=== PATIENT | female | born 1950 | race Caucasian/White ===

== ENCOUNTER 2017-10-31 06:40 | Outpatient (CLI) | payer MEDICARE, MEDICAID ==
[~2017-10-31] VITALS: Ht 172.7 cm; Wt 60.0 kg
--- NOTE | ~2017-10-31 | HEMODYNAMI ---
PATIENT:ZEINA TURNER MEDICAL RECORD: [id number] : 54 LOCATION:D.CAT ADMISSION DATE: 10/31/17 Generatedon:10/31/20179:21 Patient name: ZEINA TURNER Patient #: [id number] SSN: DO B: 1950 Date of study: 10/31/2017 Page: Of Hemodynamic Procedure Report Patient Data Patient Demographics Procedure consent was obtained First Name: ZEINA Gender: Female Last Name: YUE : 1950 Middle Initial: YESY Age: 67 year(s) Patient #: [id number] Race: Unknown Additional ID: [id number] Contact details Address: [address] [place] [address] State: [place] City: [place] Zip code: [address] Past Medical History Allergies Allergen Reaction Date Comments Reported Codeine 10/31/2017 Admission Admission Data Admission Date: 10/31/2017 Admission Time: 6:40 Lab Results Lab Result Date: 10/31/2017 Lab Result Time: 0:00 Biochemistry Name Units Result Min Max BUN mg/dl 12 --(-*--)-- 7 18 Creatinine mg/dl 0.8 --(-*--)-- 0.6 1.3 CBC Name Units Result Min Max Hemoglobin g/dl 14.3 --(*---)-- 13.5 17.5 Procedure Procedure Types Cath Procedure Peripheral Cath Diagnostic Procedure Cath Peripheral Gnhqg-Lncljjt-Ese-Off Procedure Description Procedure Date Procedure Date: 10/31/2017 Procedure Start Time: 9:04 Procedure End Time: 9:18 Procedure Staff Name Function Primitivo Jacobo MD Performing Physician Scarlet Garnett RT Monitor Tisha Yanez RT Scrub Vasu Summers RN Nurse Procedure Data Cath Procedure Fluoroscopy Diagnostic fluoroscopy Total fluoroscopy Time: 0.8 time: 0.8 min min Diagnostic fluoroscopy Total fluoroscopy dose: 70 dose: 70 mGy mGy Contrast Material Contrast Material Type Amount (ml) Isovue 370 66 Entry Location Entry Primary Successful Side Size Upsize Upsize Entry Closure Succes sful Closure Location (Fr) 1 (Fr) 2 (Fr) Remarks Device Remarks Femoral Right 5 Fr Exoseal artery Estimated blood loss: 5 ml Diagnostic catheters Device Type Used For End Catheter Placement DIAGNOSTIC UF 5Fr Procedure catheter ([id number]) Procedure Complications No complications Procedure Medications Medication Administration Route Dosage 0.9% NaCl I.V. 100 ml/hr Oxygen etCO2 Nasal cannula 2 l/min Heparin Flush Bag added to field 2 bags (1000units/500ml NS) Lidocaine 2% added to field 20 Versed I.V. 1 mg Fentanyl I.V. 50 mcg Versed I.V. 1 mg Fentanyl I.V. 50 mcg Versed I.V. 1 mg Versed I.V. 1 mg Hemodynamics Rest Pre Cath Intra NCS Post Cath Vital Signs Time Heart Resp SPO2 etCO2 NIBP (mmHg) Rhythm Pain Sedation Rate (ipm) (%) (mmHg) Status Level (bpm) 8:46:41 45 14 99 0 197/103(173) NSR 0 (11) 10(A) , No pain 8:52:09 48 15 100 31.4 208/100(159) NSR 0 (11) 10(A) , No pain 8:57:33 50 19 99 35.9 166/88(113) NSR 0 (11) 10(A) , No pain 9:07:51 45 15 97 33.6 137/77(0) NSR 0 (11) 9(A) , No pain 9:11:16 63 16 98 21.7 137/83(105) NSR 0 (11) 9(A) , No pain 9:15:54 55 19 99 21.6 132/78(98) NSR 0 (11) 10(A) , No pain Medications Time Medication Route Dose Verified Delivered Reason Notes Effe ctiveness by by 8:52:03 0.9% NaCl I.V. 100 Vasu Vasu Per ml/hr Melina Summers physician RN RN 8:52:19 Oxygen etCO2 2 Vasu Vasu Per Nasal l/min Melina Summers physician cannula RN RN 8:52:31 Heparin Flush added 2 Vasu Vasu used for Bag to bags Melina Summers procedure (1000units/500ml field RN RN NS) 8:52:44 Lidocaine 2% added 20ml Vasu Vasu for local to vial Lorigan Lorigan anesthetic field RN RN 8:54:01 Versed I.V. 1 mg Vasu Vasu for Lorigan Lorigan sedation RN RN 8:54:11 Fentanyl I.V. 50 Vasu Vasu for mcg Lorigan Lorigan sedation RN RN 8:58:37 Versed I.V. 1 mg Vasu Vasu for Lorigan Lorigan sedation RN RN 8:58:44 Fentanyl I.V. 50 Vasu Vasu for mcg Lorigan Lorigan sedation RN RN 9:01:47 Versed I.V. 1 mg Vasu Vasu for Lorigan Lorigan sedation RN RN 9:04:36 Versed I.V. 1 mg Vasu Vasu for Lorigan Lorigan sedation RN property management intern Log Time Note 8:34:53 Signed procedure consent form obtained from patient. 8:34:55 Vasu Summers RN sent for patient. Start room use. 8:34:57 Time tracking: Regular hours (M-F 7:00 - 5:00) 8:35:00 Plan of Care:Hemodynamics will remain stable., Cardiac rhythm will remain stable., Comfort level will be maintained., Respiratory function will remain adequate., Patient/ family verbilizes understanding of procedure., Procedure tolerated without complication., Recovers from procedure without complications.. 8:35:50 H&P Date Dictated: 10/22/2017 Within 30 days and on chart., H&P Addendum completed by physician on day of procedure. (MUST COMPLETE FOR ALL OUTPATIENTS). 8:36:25 Patient allergic to Codeine 8:37:08 Lab Result : BUN 12 mg/dl 8:37:08 Lab Result : Hemoglobin 14.3 g/dl 8:37:08 Lab Result : Creatinine 0.8 mg/dl 8:38:15 Patient received from Pre/Post Procedure Room to CCL 1 Alert and oriented. Tansferred to table in Supine position. 8:38:16 Warm blankets applied, and tasia hugger turned on for patient comfort. 8:38:16 Correct patient and procedure confirmed by team. 8:38:17 ECG and BP/O2 sat monitors applied to patient. 8:44:24 Vital chart was started 8:44:30 Rhythm: sinus bradycardia 8:48:02 Pre-procedure instructions explained to patient. 8:48:02 Pre-op teaching completed and patient verbalized understanding. 8:48:04 Family in patients room. 8:48:06 Patient NPO since Midnight. 8:48:14 Is the patient allergic to Iodine/contrast media? No. 8:48:15 Is patient on blood thinner?No 8:48:18 Patient diabetic? No. 8:48:22 Patient not . Patient is over age 55. 8:48:25 Previous problem with sedation/anesthesia? No ? 8:48:26 Snore? Yes 8:48:27 Sleep apnea? Yes 8:48:28 Deviated septum? No 8:48:29 Opens mouth fully? Yes 8:48:30 Sticks out tongue? Yes 8:48:32 Airway obstruction? No ? 8:48:37 Dentures? No OUT 8:48:41 Pre procedure: right dorsailis pedis pulse 2+ Normal; easily identifiable; not easily obliterated 8:48:45 Pre procedure: left dorsailis pedis pulse 2+ Normal; easily identifiable; not easily obliterated 8:48:55 IV patent on arrival in left forearm with 0.9% NaCl at [facility]. 8:48:58 Lab results completed and on chart. 8:49:01 Bilateral groins area was prepped with chlora-prep and draped in sterile fashion 8:49:02 Alarms reviewed by R. N. 8:49:03 Sharps counted by scrub and verified by R.N. 8:52:03 0.9% NaCl 100 ml/hr I.V. was administered by Vasu Summers RN; Per physician; 8:52:19 Oxygen 2 l/min etCO2 Nasal cannula was administered by Vasu Summers RN; Per physician; 8:52:31 Heparin Flush Bag (1000units/500ml NS) 2 bags added to field was administered by Vasu Summers RN; used for procedure; 8:52:44 Lidocaine 2% 20ml vial added to field was administered by Vasu Summers RN; for local anesthetic; 8:53:37 --------ALL STOP TIME OUT------ 8:53:37 Final Timeout: patient, procedure, and site verified with staff and physician. All members of the team are in agreement. 8:53:40 Bilateral groins site verified by team. 8:53:42 Physical assessment completed. ASA score P 2 - A patient with mild systemic disease as per Primitivo Jacobo MD. 8:53:46 Sedation plan: IV Moderate Sedation Medication:Versed, Fentanyl 8:53:57 Use device set CATH PACK 8:53:59 ACIST Syringe (11628) opened to sterile field. 8:53:59 ACIST Hand Control (05732) opened to sterile field. 8:54:00 ACIST Manifold (41404) opened to sterile field. 8:54:00 Medline Cath Pack ([id number]) opened to sterile field. 8:54:01 Versed 1 mg I.V. was administered by Vasu Summers RN; for sedation; 8:54:01 Bag Decanter (2002S) opened to sterile field. 8:54:01 DIAGNOSTIC WIRE .035 260cm J wire (809935) opened to sterile field. 8:54:07 SHEATH 5FR Elroy (EAX388) opened to sterile field. 8:54:11 Fentanyl 50 mcg I.V. was administered by Vasu Summers RN; for sedation; 8:58:37 Versed 1 mg I.V. was administered by Vasu Summers RN; for sedation; 8:58:42 Zero performed for pressure channel P1 8:58:44 Fentanyl 50 mcg I.V. was administered by Vasu Summers RN; for sedation; 9:01:47 Versed 1 mg I.V. was administered by Vasu Summers RN; for sedation; 9:03:37 Procedure started. 9:03:37 Full Disclosure recording started 9:04:33 Local anesthetic to right femoral artery with Lidocaine 2% by Primitivo Jacobo MD.INITIAL ACCESS ONLY 9:04:36 Versed 1 mg I.V. was administered by Vasu Summers RN; for sedation; 9:06:39 A 5 Fr sheath was inserted into the Right Femoral artery 9:06:57 A DIAGNOSTIC UF 5Fr catheter ([id number]) was advanced over the wire and used for Procedure. 9:07:41 Abdominal angiogram w/ runoff was performed. 9:08:24 Left leg runoff performed. 9:09:10 Right leg runoff performed. 9:13:01 Catheter removed. 9:13:12 EXOSEAL 5Fr (EX500) opened to sterile field. 9:13:50 Sheath removed intact; hemostasis achieved with Exoseal to the Right Femoral artery. 9:14:07 Procedure ended.(Physican Out) 9:14:40 Fluoroscopy time 00.80 minutes. 9:14:43 Fluoroscopy dose: 70 mGy 9:14:43 Flurop Dose total: 70 9:14:47 Contrast amount:Isovue 370 66ml. 9:14:48 Sharps counted by scrub and verified by R.N. 9:14:52 Post-op/insertion site Right Femoral artery dressed using a 4 x 4 and Tegaderm. 9:14:56 Post right femoral artery:stable, soft, clean and dry 9:15:02 Post procedure: right dorsailis pedis pulse 2+ Normal; easily identifiable; not easily obliterated. 9:15:05 Post procedure: left dorsailis pedis pulse 2+ Normal; easily identifiable; not easily obliterated. 9:15:08 Post-procedure physical assessment completed. ASA score P 2 - A patient with mild systemic disease as per Primitivo Jacobo MD. 9:15:11 Post procedure rhythm: unchanged. 9:15:13 Estimated blood loss: 5 ml 9:15:14 Post procedure instruction explained to patient.Patient verbalizes understanding. 9:15:15 Patient needs reinforcement of post procedure teaching. 9:18:16 Procedure and supply charges have been captured, reviewed, submitted and are correct. 9:18:18 Procedure Complication : No complications 9:18:20 Vital chart was stopped 9:18:20 See physician's report for complete and final results. 9:18:22 Report given to Pre/Post Procedure Room. 9:18:25 Patient transfered to Pre/Post Procedure Room with Bed. 9:18:27 Procedure ended. 9:18:27 Full Disclosure recording stopped 9:18:30 End room use (Document Last) Device Usage Item Name Manufacture Quantity Catalog Hospital Part Current Minimal L ot# / Number Charge Number Stock Stock Serial# Code ACIST Acist 1 53300 807322 326841 452796 20 Syringe Medical (70560) Systems Inc ACIST Hand Acist 1 97731 411798 272799 050952 5 Control Medical (26072) Systems Inc ACIST Acist 1 30346 268331 592185 580915 5 Manifold Medical (77000) Systems Inc Medline Cardinal 1 [id number] 338962 18643 619476 5 Cath Pack Packback ([id number]) Bag Microtek 1 715998 52439 940634 5 Stringbike Inc. () DIAGNOSTIC [place] 1 435384 666108 929123 118326 30 WIRE .035 260cm J wire (996198) SHEATH 5FR Terumo 1 VQX143 844974 474898 629250 40 Elroy (PJD811) DIAGNOSTIC Cardinal 1 [id number] 768274 403442 894877 10 UF 5Fr Health catheter ([id number]) EXOSEAL 5Fr Cardinal 1 EX500 319516 226532 130263 10 (EX500) Health Signature Audit [place] Stage Time Signature Unsigned Intra-Procedure 10/31/2017 Scarlet Garnett 9:21:31 AM RT(R) Signatures Monitor : Scarlet Garnett Signature : RT Date : Time : [address] [address]
[~2017-10-31 06:40] MED LIST: AMBIEN5 MG PO; HCTZ25 MG PO; PRINIVIL20 MG PO; SYNTHROID100 MCG PO; TENORMIN100 MG PO; ZITHROMAX250 MG PO; ZOLOFT50 MG PO
[2017-10-31 06:49] VITALS: BP 159/78; Ht 172.7 cm; Wt 60.0 kg
[2017-10-31 06:58] LABS: BASOPHILS 1.6 % (0-2); HEMATOCRIT 40.9 % (36.0-48.0); HEMOGLOBIN 14.3 g/dL (12-16); IMMATURE GRANULOCYTES 0.6 % (0-5); LYMPHOCYTES 35.5 % (15-50); MCH 31.1 pg (26.0-34.0); MCV 88.9 fL (80.0-100.0); MEAN PLATELET VOLUME 9.6 fL (7.4-10.4); MONOCYTES 8.5 % (2-11); NEUTROPHILS 48.8 % (40-80); RDW 14.3 % (11.5-14.5); WBC 8.3 10x3/uL (4.8-10.8)
[2017-10-31 06:59] LABS: PLATELET COUNT 341 10x3/uL (130-400)
[2017-10-31 07:16] LABS: CALC OSMOLALITY 270 mosm/kg (275-300); CALCIUM 9.8 mg/dL (8.5-10.1); CARBON DIOXIDE 29.2 mmol/L (21.0-32.0); CHLORIDE - SERUM 97 mmol/L (98-107); CREATININE - SERUM 0.8 mg/dL (0.6-1.3); GLUCOSE 108 mg/dL (74-106); POTASSIUM - SERUM 3.5 mmol/L (3.5-5.1); SODIUM 135 mmol/L (136-145); UREA NITROGEN 12 mg/dL (7-18); eGFR NON AFRICAN AMERICAN 76 mL/min (90-120)
== END 2017-10-31 12:15 | disposition home or self-care (01) ==
LOC: D.CATH 06:40
PROVIDERS: Internal Medicine Cardiovascular Disease
DX: I70.213 Atherosclerosis of native arteries of extremities with intermittent claudication, bilateral legs (principal); Z01.812 Encounter for preprocedural laboratory examination

== ENCOUNTER 2017-11-13 17:11 | Emergency (ER) | payer MEDICARE, MEDICAID ==
[2017-10-31 06:49] VITALS: BMI 20.1
== END 2017-11-13 19:00 | disposition home or self-care (01) ==
LOC: D.ER 17:11
DX: S81.812A Laceration without foreign body, left lower leg, initial encounter (principal); W26.9XXA Contact with unspecified sharp object(s), initial encounter; Y93.89 Activity, other specified; Y92.019 Unspecified place in single-family (private) house as the place of occurrence of the external cause; F17.200 Nicotine dependence, unspecified, uncomplicated; I10 Essential (primary) hypertension; E03.9 Hypothyroidism, unspecified

== ENCOUNTER 2018-06-19 00:32 | Emergency (ER) | payer MEDICARE ==
[~2018-06-19] VITALS: Ht 172.7 cm; Wt 59.1 kg
[2018-06-19 00:44] VITALS: Ht 172.7 cm; Wt 59.1 kg
[2018-06-19 00:59] LABS: BASOPHILS 0.9 % (0-2); EOSINOPHILS 0.7 % (0-7); HEMATOCRIT 36.8 % (36.0-48.0); HEMOGLOBIN 13.3 g/dL (12-16); IMMATURE GRANULOCYTES 0.3 % (0-5); LYMPHOCYTES 24.1 % (15-50); MCH 32.3 pg (26.0-34.0); MCHC 36.1 g/dL (31.0-37.0); MCV 89.3 fL (80.0-100.0); MEAN PLATELET VOLUME 10.1 fL (7.4-10.4); MONOCYTES 12.5 % (2-11); NEUTROPHILS 61.5 % (40-80); PLATELET COUNT 325 10x3/uL (130-400); RBC 4.12 10x6/uL (4.00-5.40); RDW 13.8 % (11.5-14.5); WBC 10.3 10x3/uL (4.8-10.8)
[2018-06-19 01:10] LABS: APTT 28.5 SECONDS (22.8-39.4); INR 1.07 (0.85-1.17); PROTIME 13.4 SECONDS (11.6-15.0)
[2018-06-19 01:18] LABS: UDS - AMPHET POSITIVE QUAL (NEGATIVE); UDS - BARB NEGATIVE QUAL (NEGATIVE); UDS - BENZO NEGATIVE QUAL (NEGATIVE); UDS - COCAINE NEGATIVE QUAL (NEGATIVE); UDS - OPIATE NEGATIVE QUAL (NEGATIVE); UDS - PCP NEGATIVE QUAL (NEGATIVE); UDS - THC POSITIVE QUAL (NEGATIVE)
[2018-06-19 01:19] LABS: APPEARANCE HAZY (CLEAR); BILIRUBIN NEGATIVE (NEGATIVE); COLOR YELLOW (YELLOW); GLUCOSE NEGATIVE (NEGATIVE); KETONE NEGATIVE (NEGATIVE); NITRITE NEGATIVE (NEGATIVE); PROTEIN NEGATIVE (NEGATIVE); SPECIFIC GRAVITY 1.015 (1.005-1.020); UROBILINOGEN NORMAL (NORMAL)
[2018-06-19 01:21] LABS: BACTERIA MODERATE /hpf (NONE SEEN); EPITHELIAL CELLS 0-5 /hpf (0-5); RED CELLS - URINE 0-5 /hpf (0-5); WHITE CELLS - URINE 0-5 /hpf (0-5)
[2018-06-19 01:27] LABS: ALBUMIN 3.9 g/dL (3.4-5.0); BILIRUBIN - TOTAL 1.12 mg/dL (0.2-1.3); CALCIUM 9.9 mg/dL (8.5-10.1); CARBON DIOXIDE 24.9 mmol/L (21.0-32.0); CKMB 6.6 U/L (0.0-3.6); CREATININE - SERUM 1.3 mg/dL (0.6-1.3); MAGNESIUM - SERUM 1.7 mg/dL (1.8-2.4); POTASSIUM - SERUM 2.9 mmol/L (3.5-5.1); PROTEIN - SERUM 7.8 g/dL (6.4-8.2); THYROID STIMULATING HORMONE 24.76 uIU/mL (0.36-3.74); TROPONIN-I 0.035 ng/mL (0.000-0.060)
[2018-06-19 03:50] VITALS: BP 159/94
== END 2018-06-19 03:50 | disposition short-term general hospital (02) ==
LOC: D.ER 00:32
PROVIDERS: Family Medicine
DX: G40.909 Epilepsy, unspecified, not intractable, without status epilepticus (principal); E87.6 Hypokalemia; E87.1 Hypo-osmolality and hyponatremia; E03.9 Hypothyroidism, unspecified; F15.10 Other stimulant abuse, uncomplicated; F17.200 Nicotine dependence, unspecified, uncomplicated

== ENCOUNTER → 2020-02-19 13:02 | Outpatient (CLI) | payer MEDICARE ==
[2018-06-19 00:44] VITALS: BMI 19.8
[2020-02-24 13:11] LABS: CORTISOL FREE - 24HR 3 ug/24 hr (6-42); CORTISOL FREE - UR 5 ug/L (Undefined)
== END | disposition home or self-care (01) ==
LOC: D.LAB 02-15 12:06
PROVIDERS: ATTEND Surgery
DX: D35.00 Benign neoplasm of unspecified adrenal gland (principal)

== ENCOUNTER 2020-02-19 13:15 | Outpatient (CLI) | payer MEDICARE ==
[2018-06-19 00:44] VITALS: BMI 19.8
== END 2020-02-19 16:45 | disposition home or self-care (01) ==
LOC: D.MAMMO 13:15
PROVIDERS: ATTEND Family Medicine
DX: Z12.31 Encounter for screening mammogram for malignant neoplasm of breast (principal)

== ENCOUNTER → 2020-02-25 09:41 | Outpatient (CLI) | payer MEDICARE ==
[2018-06-19 00:44] VITALS: BMI 19.8
== END | disposition home or self-care (01) ==
LOC: D.US 09:41
PROVIDERS: ATTEND Internal Medicine Cardiovascular Disease
DX: I65.21 Occlusion and stenosis of right carotid artery (principal)

== ENCOUNTER → 2020-03-18 13:18 | Outpatient (CLI) | payer MEDICARE ==
[2018-06-19 00:44] VITALS: BMI 19.8
== END | disposition home or self-care (01) ==
LOC: D.US 13:18
PROVIDERS: ATTEND Family Medicine
DX: R92.8 Other abnormal and inconclusive findings on diagnostic imaging of breast (principal)

== ENCOUNTER 2020-11-28 10:34 | Inpatient (IN) | payer MEDICARE ==
[~2020-11-28] VITALS: Ht 152.4 cm; Wt 46.7 kg
[2020-11-28] MEDS ORDERED: LISINOPRIL-HCT1 EAC7 PO (11:36)
[2020-11-28] MEDS ORDERED: LOVASTATIN20 MG PO (11:37)
[2020-11-28] MEDS ORDERED: BRILINTA90 MG PO (11:38)
[2020-11-28] MEDS ORDERED: FERROUS SULFAT325 MG PO (11:39)
[2020-11-28] MEDS ORDERED: AMBIEN10 MG PO (11:40)
[2020-11-28 11:42] VITALS: BP 161/89
[2020-11-28 13:51] LABS: BASOPHILS 1.4 % (0-2); EOSINOPHILS 0.5 % (0-7); HEMOGLOBIN 8.4 g/dL (12-16); MCH 31.1 pg (26.0-34.0); MCHC 33.7 g/dL (31.0-37.0); MCV 92.3 fL (80.0-100.0); MEAN PLATELET VOLUME 7.1 fL (7.4-10.4); MONOCYTES 10.5 % (2-11); NEUTROPHILS 61.6 % (40-80); PLATELET COUNT 400 10x3/uL (130-400); RBC 2.71 10x6/uL (4.00-5.40); WBC 5.8 10x3/uL (4.8-10.8)
[2020-11-28 14:03] LABS: ALBUMIN 2.9 g/dL (3.4-5.0); ALKALINE PHOSPHATASE 60 U/L (30-120); ALT (SGPT) 16 U/L (10-68); BILIRUBIN - TOTAL 0.31 mg/dL (0.2-1.3); CALC OSMOLALITY 260 mosm/kg (275-300); CALCIUM 8.6 mg/dL (8.5-10.1); CARBON DIOXIDE 25.5 mmol/L (21.0-32.0); CHLORIDE - SERUM 96 mmol/L (98-107); CREATININE - SERUM 0.8 mg/dL (0.6-1.3); GLUCOSE 156 mg/dL (74-106); MAGNESIUM - SERUM 1.6 mg/dL (1.8-2.4); PHOSPHOROUS 3.4 mg/dL (2.5-4.9); PROTEIN - SERUM 5.9 g/dL (6.4-8.2); SODIUM 129 mmol/L (136-145); UREA NITROGEN 10 mg/dL (7-18); eGFR NON AFRICAN AMERICAN 75 mL/min (90-120)
[2020-11-28 14:07] LABS: POTASSIUM - SERUM 2.8 mmol/L (3.5-5.1)
[2020-11-28 17:01] LABS: INR 1.25 (0.85-1.17); PROTIME 14.5 SECONDS (11.6-15.0)
[2020-11-28 17:04] VITALS: BP 129/84
[2020-11-28 17:08] LABS: % SATURATION 15 % (15-55); IRON 38 ug/dl (35-150); TOTAL IRON BIND CAPACITY 248 ug/dl (260-445); UNSAT IRON BIND CAPACITY 210 ug/dl (150-375)
[2020-11-28 17:36] LABS: THYROID STIMULATING HORMONE 0.08 uIU/mL (0.36-3.74)
[2020-11-28 20:00] VITALS: BP 161/65
[2020-11-29 00:26] LABS: BILIRUBIN NEGATIVE (NEGATIVE); KETONE NEGATIVE (NEGATIVE); NITRITE NEGATIVE (NEGATIVE); UROBILINOGEN NORMAL mg/dL (< 2)
[2020-11-29 00:34] LABS: UDS - AMPHET NEGATIVE QUAL (NEGATIVE); UDS - BARB NEGATIVE QUAL (NEGATIVE); UDS - BENZO NEGATIVE QUAL (NEGATIVE); UDS - COCAINE NEGATIVE QUAL (NEGATIVE); UDS - OPIATE NEGATIVE QUAL (NEGATIVE); UDS - PCP NEGATIVE QUAL (NEGATIVE); UDS - THC POSITIVE QUAL (NEGATIVE)
--- NOTE | 2020-11-29 02:00 | NUR ---
I have reviewed this patient and I concur with the Shift Assessment completed by the Licensed Practical Nurse today this shift.
[2020-11-29 04:00] VITALS: BP 147/69
[2020-11-29 07:46] LABS: BASOPHILS 1.5 % (0-2); EOSINOPHILS 1.3 % (0-7); HEMATOCRIT 24.1 % (36.0-48.0); HEMOGLOBIN 8.1 g/dL (12-16); LYMPHOCYTES 29.4 % (15-50); MCH 30.9 pg (26.0-34.0); MCHC 33.5 g/dL (31.0-37.0); MCV 92.3 fL (80.0-100.0); MEAN PLATELET VOLUME 7.2 fL (7.4-10.4); MONOCYTES 12.1 % (2-11); NEUTROPHILS 55.7 % (40-80); PLATELET COUNT 400 10x3/uL (130-400); RBC 2.62 10x6/uL (4.00-5.40); RDW 20.8 % (11.5-14.5); WBC 5.8 10x3/uL (4.8-10.8)
[2020-11-29 07:56] LABS: ALBUMIN 2.7 g/dL (3.4-5.0); ALKALINE PHOSPHATASE 45 U/L (30-120); ALT (SGPT) 12 U/L (10-68); BILIRUBIN - TOTAL 0.45 mg/dL (0.2-1.3); CALCIUM 8.3 mg/dL (8.5-10.1); CARBON DIOXIDE 21.8 mmol/L (21.0-32.0); CHLORIDE - SERUM 103 mmol/L (98-107); CREATININE - SERUM 0.6 mg/dL (0.6-1.3); POTASSIUM - SERUM 4.2 mmol/L (3.5-5.1); PROTEIN - SERUM 5.5 g/dL (6.4-8.2); SODIUM 131 mmol/L (136-145); eGFR NON AFRICAN AMERICAN > 90 mL/min (90-120)
[2020-11-29 07:57] LABS: CALC OSMOLALITY 260 mosm/kg (275-300); GLUCOSE 95 mg/dL (74-106); UREA NITROGEN 7 mg/dL (7-18)
[2020-11-29 09:06] VITALS: BP 152/90
--- NOTE | 2020-11-29 09:41 | NUR ---
ALERT AND ORIENTED. ASSESSMENT COMPLETE. DENIES NEEDS. BED LOW. CALL RODRIGUEZ AND PERSONAL ITEMS IN REACH. WILL CONTINUE TO MONITOR.
[2020-11-29 12:00] VITALS: BP 167/103
[2020-11-29 15:13] VITALS: Ht 152.4 cm; Wt 46.7 kg
[2020-11-29 16:54] VITALS: BP 127/71
--- NOTE | 2020-11-29 16:58 | NUR ---
PATIENT REQUESTING TO HAVE ROUTINE COLONOSCOPY WHILE SHE IS HERE IN HOSPITAL. SPOKE WITH HARLAN GOYAL WHO STATES WILL TALK TO MD ABOUT IT TOMORROW. PATIENT MADE AWARE.
[2020-11-29] MEDS ORDERED: MEGACE 20 MG TA20 MG PO (21:17)
[2020-11-30] VITALS: BP 142/62
[2020-11-30 04:00] VITALS: BP 123/72
--- NOTE | 2020-11-30 06:02 | NUR ---
I have reviewed this patient and I concur with the Shift Assessment completed by the Licensed Practical Nurse today this shift.
[2020-11-30 06:20] LABS: BASOPHILS 0.9 % (0-2); EOSINOPHILS 2.2 % (0-7); HEMATOCRIT 25.3 % (36.0-48.0); HEMOGLOBIN 8.7 g/dL (12-16); MCHC 34.2 g/dL (31.0-37.0); MCV 93.5 fL (80.0-100.0); MEAN PLATELET VOLUME 7.3 fL (7.4-10.4); MONOCYTES 7.1 % (2-11); NEUTROPHILS 63.8 % (40-80); PLATELET COUNT 390 10x3/uL (130-400); RBC 2.71 10x6/uL (4.00-5.40); RDW 20.8 % (11.5-14.5); WBC 6.4 10x3/uL (4.8-10.8)
[2020-11-30 07:01] LABS: ALBUMIN 2.8 g/dL (3.4-5.0); ALKALINE PHOSPHATASE 44 U/L (30-120); ALT (SGPT) 18 U/L (10-68); BILIRUBIN - TOTAL 0.37 mg/dL (0.2-1.3); CALC OSMOLALITY 263 mosm/kg (275-300); CALCIUM 8.7 mg/dL (8.5-10.1); CARBON DIOXIDE 21.9 mmol/L (21.0-32.0); CHLORIDE - SERUM 102 mmol/L (98-107); CREATININE - SERUM 0.7 mg/dL (0.6-1.3); GLUCOSE 90 mg/dL (74-106); POTASSIUM - SERUM 3.3 mmol/L (3.5-5.1); PROTEIN - SERUM 5.8 g/dL (6.4-8.2); SODIUM 133 mmol/L (136-145); UREA NITROGEN 6 mg/dL (7-18); eGFR NON AFRICAN AMERICAN 88 mL/min (90-120)
[2020-11-30 07:15] LABS: HAPTOGLOBIN 98 mg/dL (37-355)
[2020-11-30 08:21] VITALS: BP 136/76
--- NOTE | 2020-11-30 09:50 | NUR ---
AAOX4 UPON ENTERING. ADMINISTERED MEDICAITON, NO DIFFICULTIES. RESTING COMFORTABLY IN BED, VISITOR AT BEDSIDE. DENIES ANY NEEDS AT THIS TIME. BED IN LOWEST POSITION, BED RAILS X2, CALL LIGHT WITHIN REACH. WILL CONTINUE POC. ASSESSMENT PERFORMED.
[2020-11-30 11:11] LABS: HEPATITIS C ANTIBODY >11.0 S/CO RAT (0.0-0.9)
[2020-11-30 13:58] VITALS: BP 149/75
[2020-11-30 17:03] VITALS: BP 145/77
--- NOTE | 2020-11-30 17:11 | NUR ---
RESTING COMFORTABLY IN BED. HUNG IV IRON. DENIES ANY NEEDS AT THIS TIME. WILL CONTINUE POC.
--- NOTE | 2020-11-30 18:49 | NUR ---
I have reviewed this patient and I concur with the Shift Assessment completed by the Licensed Practical Nurse today this shift.
[2020-11-30 20:00] VITALS: BP 153/75
[2020-12-01] VITALS: BP 149/86
[2020-12-01 04:00] VITALS: BP 136/82
[2020-12-01 06:17] LABS: BASOPHILS 1.3 % (0-2); EOSINOPHILS 3.4 % (0-7); HEMOGLOBIN 8.6 g/dL (12-16); LYMPHOCYTES 23.1 % (15-50); MCH 31.7 pg (26.0-34.0); MCHC 34.4 g/dL (31.0-37.0); MCV 92.2 fL (80.0-100.0); MEAN PLATELET VOLUME 7.5 fL (7.4-10.4); MONOCYTES 8.6 % (2-11); NEUTROPHILS 63.6 % (40-80); PLATELET COUNT 406 10x3/uL (130-400); RBC 2.72 10x6/uL (4.00-5.40); RDW 20.4 % (11.5-14.5); WBC 6.9 10x3/uL (4.8-10.8)
[2020-12-01 06:30] LABS: ALBUMIN 2.8 g/dL (3.4-5.0); ALKALINE PHOSPHATASE 43 U/L (30-120); ALT (SGPT) 18 U/L (10-68); BILIRUBIN - TOTAL 0.26 mg/dL (0.2-1.3); CALC OSMOLALITY 265 mosm/kg (275-300); CALCIUM 8.8 mg/dL (8.5-10.1); CARBON DIOXIDE 23.2 mmol/L (21.0-32.0); CHLORIDE - SERUM 104 mmol/L (98-107); CREATININE - SERUM 0.7 mg/dL (0.6-1.3); GLUCOSE 90 mg/dL (74-106); POTASSIUM - SERUM 3.7 mmol/L (3.5-5.1); PROTEIN - SERUM 5.7 g/dL (6.4-8.2); SODIUM 134 mmol/L (136-145); eGFR NON AFRICAN AMERICAN 88 mL/min (90-120)
[2020-12-01 06:31] LABS: UREA NITROGEN 8 mg/dL (7-18)
--- NOTE | 2020-12-01 07:39 | NUR ---
ALERT AND ORIENTED. ASSESSMENT COMPLETE. DENIES NEEDS. BED LOW. CALL RODRIGUEZ AND PERSONAL ITEMS IN REACH. WILL CONTINUE TO MONITOR.
[2020-12-01 08:44] VITALS: BP 157/90
[2020-12-01 13:01] VITALS: BP 139/66
[2020-12-01] MEDS ORDERED: MAGNESIUM OXID500 MG PO (14:53)
[2020-12-01] MEDS ORDERED: KLOR-CON M2020 MEQ PO (14:53)
--- NOTE | 2020-12-01 15:09 | MORECARE ---
CASE MANAGEMENT DISCHARGE SUMMARY PATIENT: ZEINA TURNER UNIT: [id number] ADM DATE: 11/28/20 AGE: 70 : 52 SEX: F ROOM/BED: D.[facility] AUTHOR: YASHIRA,DOC PHYSICIAN: REFERRING PHYSICIAN: DENZEL KOEHLER DO DATE OF SERVICE: 12/01/20 Case Management Discharge Planning Summary COMMENTS ENTERED DATE: 12/01/20 14:58 CT COMMENT TYPE: Discharge Planning REVIEWER: Bhavani Hahn PER PATIENT'S NURSE THEY DO NTO NEED ANYTHING. IMM SERVED AND COPY GIVEN BY PATIENT NURSE AND PLACED IN CHART DCP REVIEW SUMMARY ANTICIPATED D/C DATE: EXPECTED LOS : CASE STATUS: DCP Initiated INITIAL REVIEW: 11/28/2020 INITIAL REVIEWER: Bhavani Hahn FINAL DISCHARGE DISPOSITION: : FINAL REVIEWER: FINAL REVIEW DATE: DCP Focus Questions & Answers QUESTION: ANSWER : PATIENT: ZEINA TURNER ENCOUNTER: [id number] MEDICAL RECORD#: [id number] ADMISSION DATE: 11/28/2020 DISCHARGE DATE: ATTENDING MD: DENZEL OLMSTEAD : AGE: 70 MARITAL STATUS: S DC PLAN ID: [id number] FACILITY: [facility] PRINTED ON: 12/01/20 15:09 CT All edits/amendments must be made on the electronic document DICTATION DATE: 12/01/20 1509 RETURN CHECKER: LOW 12/01/20 1509 RPT#: [id number] DC DATE: STATUS: ADM IN [facility] [address] [place] [address] END OF REPORT
--- NOTE | 2020-12-01 15:22 | NUR ---
DC EDUCATION PROVIDED BOTH WRITTEN AND VERBAL. VERBALIZED UNDERSTANDING. DENIES FURTHER QUESTIONS. NO IV TO REMOVE. PATIENT DC HOME WITH DAUGHTER WITH ALL BELONGINGS.
--- NOTE | 2020-12-02 10:31 | MORECARE ---
CASE MANAGEMENT DISCHARGE SUMMARY PATIENT: ZEINA TURNER UNIT: [id number] ADM DATE: 11/28/20 AGE: 70 : 52 SEX: F ROOM/BED: D.2211 AUTHOR: YASHIRA,DOC PHYSICIAN: REFERRING PHYSICIAN: DENZEL KOEHLER DO DATE OF SERVICE: 12/02/20 Case Management Discharge Planning Summary COMMENTS ENTERED DATE: 12/01/20 14:58 CT COMMENT TYPE: Discharge Planning REVIEWER: Bhavani Hahn PER PATIENT'S NURSE THEY DO NTO NEED ANYTHING. IMM SERVED AND COPY GIVEN BY PATIENT NURSE AND PLACED IN CHART DCP REVIEW SUMMARY ANTICIPATED D/C DATE: EXPECTED LOS : CASE STATUS: DCP Initiated INITIAL REVIEW: 11/28/2020 INITIAL REVIEWER: Bhavani Hahn FINAL DISCHARGE DISPOSITION: : FINAL REVIEWER: FINAL REVIEW DATE: DCP Focus Questions & Answers QUESTION: ANSWER : PATIENT: ZEINA TURNER ENCOUNTER: [id number] MEDICAL RECORD#: [id number] ADMISSION DATE: 11/28/2020 DISCHARGE DATE: 12/01/2020 ATTENDING MD: DENZEL OLMSTEAD : AGE: 70 MARITAL STATUS: S DC PLAN ID: [id number] FACILITY: [facility] PRINTED ON: 12/02/20 10:31 CT All edits/amendments must be made on the electronic document DICTATION DATE: 12/02/20 103 AUTO REFINISHER: LOW 12/02/20 1030 RPT#: [id number] DC DATE:12/01/20 STATUS: DIS IN [place] [address] [place] [address] END OF REPORT
== END 2020-12-01 15:23 | disposition home or self-care (01) | DRG 640 ==
LOC: D.MS 10:34 → OBSVTIME 10:36 → D.MS 14:53
PROVIDERS: Family Medicine; ADMIT Family Medicine; ATTEND Family Medicine
DX: E87.6 Hypokalemia (principal); E43 Unspecified severe protein-calorie malnutrition; F17.203 Nicotine dependence unspecified, with withdrawal; I10 Essential (primary) hypertension; E87.1 Hypo-osmolality and hyponatremia; R56.9 Unspecified convulsions; E03.9 Hypothyroidism, unspecified; R63.4 Abnormal weight loss; F41.9 Anxiety disorder, unspecified; E83.42 Hypomagnesemia; F12.90 Cannabis use, unspecified, uncomplicated; Z72.89 Other problems related to lifestyle; Z68.20 Body mass index [BMI] 20.0-20.9, adult; D50.9 Iron deficiency anemia, unspecified

== ENCOUNTER 2020-12-08 16:42 | Inpatient (IN) | payer MEDICARE ==
[~2020-12-08] VITALS: Ht 152.4 cm; Wt 47.2 kg
[~2020-12-08 16:42] MED LIST changes: +AMBIEN10 MG PO; +BRILINTA90 MG PO; +FERROUS SULFAT325 MG PO; +KLOR-CON M2020 MEQ PO; +LISINOPRIL-HCT1 EAC7 PO; +LOVASTATIN20 MG PO; +MAGNESIUM OXID500 MG PO; +MEGACE 20 MG TA20 MG PO
[2020-12-08] MEDS ORDERED: BAYER CHEWABLE81 MG PO (17:14)
[2020-12-08 17:18] VITALS: BP 123/78; BMI 20.4
[2020-12-08 19:57] LABS: ALBUMIN 2.9 g/dL (3.4-5.0); BILIRUBIN - TOTAL 0.22 mg/dL (0.2-1.3); CALCIUM 8.5 mg/dL (8.5-10.1); CARBON DIOXIDE 21.8 mmol/L (21.0-32.0); CREATININE - SERUM 1.1 mg/dL (0.6-1.3); MAGNESIUM - SERUM 2.1 mg/dL (1.8-2.4); POTASSIUM - SERUM 3.8 mmol/L (3.5-5.1); PROTEIN - SERUM 5.7 g/dL (6.4-8.2)
[2020-12-08 19:58] LABS: HEMATOCRIT 21.5 % (36.0-48.0); MEAN PLATELET VOLUME 7.7 fL (7.4-10.4)
[2020-12-08 20:00] VITALS: BP 118/47
[2020-12-08 20:00] LABS: BASOPHILS 1.9 % (0-2); EOSINOPHILS 0.8 % (0-7); LYMPHOCYTES 26.4 % (15-50); MCH 31.7 pg (26.0-34.0); MCHC 33.8 g/dL (31.0-37.0); MCV 93.7 fL (80.0-100.0); MONOCYTES 7.8 % (2-11); NEUTROPHILS 63.1 % (40-80); WBC 6.2 10x3/uL (4.8-10.8)
--- NOTE | 2020-12-08 20:00 | NUR ---
ALERT RESTING IN BED, DENIES PAIN OR NEEDS AT THIS TIME , SEE SHIFT ASSESSMENT, IV STARTED R FA 20G, CALL LIGHT IN REACHH
[2020-12-08 20:07] LABS: HEMOGLOBIN 7.3 g/dL (12-16); PLATELET COUNT 312 10x3/uL (130-400)
[2020-12-08 20:41] LABS: BILIRUBIN NEGATIVE (NEGATIVE); KETONE NEGATIVE mg/dL (< 1+); NITRITE NEGATIVE (NEGATIVE); SQUAMOUS EPITHELIAL <1 HPF (0-4); UROBILINOGEN NORMAL mg/dL (< 2); WHITE CELLS - URINE 1 HPF (0-4)
[2020-12-09] VITALS: BP 133/70
[2020-12-09 04:00] VITALS: BP 140/65
[2020-12-09 06:08] LABS: BASOPHILS 1.3 % (0-2); EOSINOPHILS 1.7 % (0-7); LYMPHOCYTES 33.8 % (15-50); MCH 30.8 pg (26.0-34.0); MEAN PLATELET VOLUME 7.7 fL (7.4-10.4); NEUTROPHILS 54.2 % (40-80); PLATELET COUNT 261 10x3/uL (130-400); RDW 19.9 % (11.5-14.5); WBC 6.1 10x3/uL (4.8-10.8)
[2020-12-09 06:40] LABS: HEMATOCRIT 27.8 % (36.0-48.0); HEMOGLOBIN 9.4 g/dL (12-16); MCV 90.4 fL (80.0-100.0); RBC 3.07 10x6/uL (4.00-5.40)
[2020-12-09 07:09] LABS: ANION GAP 13.6 mmol/L (8-16); CALCIUM 8.4 mg/dL (8.5-10.1); CREATININE - SERUM 0.9 mg/dL (0.6-1.3); MAGNESIUM - SERUM 2.1 mg/dL (1.8-2.4); PHOSPHOROUS 3.3 mg/dL (2.5-4.9); POTASSIUM - SERUM 3.6 mmol/L (3.5-5.1)
[2020-12-09 07:13] LABS: APTT 29.5 SECONDS (22.8-39.4); INR 1.19 (0.85-1.17)
[2020-12-09 08:17] VITALS: BP 171/84
--- NOTE | 2020-12-09 09:00 | NUR ---
ALERT AND ORIENTED X4. CONTINUED NPO AT THIS TIME. ABDOMEN SOFT AND NONTENDER WITH BOWEL SOUNDS NOTED X4. SCD'S ON AT THIS TIME. INCENTIVE SPIROMETRY DEMEONTRATED PROPERLY BY PATIENT.TELEMETRY INTACT. ENCOURAGED TO USE CALL LIGHT FOR ASSSIT.
[2020-12-09 11:49] VITALS: Ht 152.4 cm; Wt 47.2 kg
[2020-12-09 12:19] VITALS: BP 178/82
[2020-12-09 13:10] LABS: HEMATOCRIT 29.8 % (36.0-48.0); HEMOGLOBIN 9.8 g/dL (12-16)
[2020-12-09 16:59] VITALS: BP 146/814
[2020-12-09 19:53] LABS: HEMATOCRIT 29.5 % (36.0-48.0)
[2020-12-09 20:00] VITALS: BP 130/52
--- NOTE | 2020-12-10 00:25 | NUR ---
EKG ON CHART, CONSENTS SIGNED AND ON CHART
[2020-12-10 00:31] VITALS: BP 150/58
[2020-12-10 00:53] LABS: HEMATOCRIT 29.1 % (36.0-48.0); HEMOGLOBIN 9.7 g/dL (12-16)
--- NOTE | 2020-12-10 03:00 | NUR ---
I have reviewed this patient and I concur with the Shift Assessment completed by the Licensed Practical Nurse today this shift.
[2020-12-10 04:29] VITALS: BP 163/90
--- NOTE | 2020-12-10 08:12 | NUR ---
PATIENT PREMEDICATED FOR PROCEDURE AND DENIES ANY ABDOMINAL PAIN OR DISCOMFORT WITH BOWEL SOUNDS NOTED AND NONTENDER ON PALPATION. IVF INFUSING AT PRESCRIBED RATE. STABLE WHEN LEAVING FOR PROCEDURE
[2020-12-10 09:19] LABS: CALC OSMOLALITY 265 mosm/kg (275-300); CALCIUM 8.3 mg/dL (8.5-10.1); CARBON DIOXIDE 22.1 mmol/L (21.0-32.0); CHLORIDE - SERUM 105 mmol/L (98-107); CREATININE - SERUM 0.8 mg/dL (0.6-1.3); GLUCOSE 78 mg/dL (74-106); MAGNESIUM - SERUM 1.6 mg/dL (1.8-2.4); PHOSPHOROUS 2.9 mg/dL (2.5-4.9); POTASSIUM - SERUM 3.4 mmol/L (3.5-5.1); SODIUM 134 mmol/L (136-145); eGFR NON AFRICAN AMERICAN 75 mL/min (90-120)
[2020-12-10 09:21] LABS: EOSINOPHILS 1.6 % (0-7); HEMATOCRIT 30.6 % (36.0-48.0); HEMOGLOBIN 10.5 g/dL (12-16); LYMPHOCYTES 31.9 % (15-50); MCH 30.8 pg (26.0-34.0); MCHC 34.2 g/dL (31.0-37.0); MCV 90.1 fL (80.0-100.0); MEAN PLATELET VOLUME 7.7 fL (7.4-10.4); MONOCYTES 8.7 % (2-11); NEUTROPHILS 56.8 % (40-80); PLATELET COUNT 281 10x3/uL (130-400); RDW 20.5 % (11.5-14.5); WBC 7.2 10x3/uL (4.8-10.8)
[2020-12-10 09:23] LABS: UREA NITROGEN 11 mg/dL (7-18)
--- NOTE | 2020-12-10 10:30 | NUR ---
RETURNED FROM PROCEDURE AND DENIES ANY PAIN OR DISCOMFORT. ENCOURAGED TO USE CALL LIGHT FOR ASSSIT AND REFUSES SCD'S AT THIS TIME.
[2020-12-10 13:00] VITALS: BP 133/71
[2020-12-10 14:25] LABS: HEMATOCRIT 31.8 % (36.0-48.0); HEMOGLOBIN 10.8 g/dL (12-16)
[2020-12-10 18:29] VITALS: BP 166/84
--- NOTE | 2020-12-10 19:18 | NUR ---
PATIENT RESTING IN BED WITH NO S/S OF DISTRESS AND DENIES NEEDS AT THIS TIME. BED IN LOWEST POSITION AND CALL LIGHT IN REACH. ENCOURAGED PATIENT TO CALL WITH NEEDS.
[2020-12-10 19:22] LABS: HEMATOCRIT 30.7 % (36.0-48.0); HEMOGLOBIN 10.2 g/dL (12-16)
[2020-12-10 20:00] VITALS: BP 154/77
--- NOTE | 2020-12-10 22:10 | NUR ---
ADMINISTERED MEDS PER ORDERS. PATIENT KELLI WELL. ENCOURAGED TO CALL WITH NEEDS.
[2020-12-11] VITALS (7 sets, daily range): BP systolic 131–150; BP diastolic 65–85
--- NOTE | 2020-12-11 04:34 | NUR ---
I have reviewed this patient and I concur with the Shift Assessment completed by the Licensed Practical Nurse today this shift.
[2020-12-11 07:32] LABS: BASOPHILS 1.5 % (0-2); HEMATOCRIT 29.9 % (36.0-48.0); HEMOGLOBIN 10.1 g/dL (12-16); MCH 30.6 pg (26.0-34.0); MCHC 33.6 g/dL (31.0-37.0); MCV 91.1 fL (80.0-100.0); MEAN PLATELET VOLUME 7.2 fL (7.4-10.4); MONOCYTES 8.4 % (2-11); NEUTROPHILS 67.1 % (40-80); PLATELET COUNT 266 10x3/uL (130-400); RBC 3.28 10x6/uL (4.00-5.40); RDW 20.8 % (11.5-14.5); WBC 6.7 10x3/uL (4.8-10.8)
[2020-12-11 08:00] LABS: CALC OSMOLALITY 266 mosm/kg (275-300); CALCIUM 8.2 mg/dL (8.5-10.1); CARBON DIOXIDE 20.5 mmol/L (21.0-32.0); CHLORIDE - SERUM 104 mmol/L (98-107); CREATININE - SERUM 0.8 mg/dL (0.6-1.3); GLUCOSE 96 mg/dL (74-106); MAGNESIUM - SERUM 1.5 mg/dL (1.8-2.4); PHOSPHOROUS 3.6 mg/dL (2.5-4.9); SODIUM 134 mmol/L (136-145); UREA NITROGEN 9 mg/dL (7-18); eGFR NON AFRICAN AMERICAN 75 mL/min (90-120)
[2020-12-12] VITALS: BP 151/83
[2020-12-12 04:00] VITALS: BP 143/78
--- NOTE | 2020-12-12 04:30 | NUR ---
I have reviewed this patient and I concur with the Shift Assessment completed by the Licensed Practical Nurse today this shift.
[2020-12-12 05:37] LABS: BASOPHILS 1.7 % (0-2); EOSINOPHILS 3.1 % (0-7); HEMATOCRIT 30.5 % (36.0-48.0); HEMOGLOBIN 10.2 g/dL (12-16); LYMPHOCYTES 31.5 % (15-50); MCH 30.9 pg (26.0-34.0); MCHC 33.4 g/dL (31.0-37.0); MCV 92.5 fL (80.0-100.0); MEAN PLATELET VOLUME 7.7 fL (7.4-10.4); MONOCYTES 9.3 % (2-11); NEUTROPHILS 54.4 % (40-80); PLATELET COUNT 269 10x3/uL (130-400); RDW 20.9 % (11.5-14.5); WBC 6.2 10x3/uL (4.8-10.8)
[2020-12-12 05:48] LABS: ANION GAP 12.9 mmol/L (8-16); CALCIUM 7.9 mg/dL (8.5-10.1); CARBON DIOXIDE 21.6 mmol/L (21.0-32.0); CREATININE - SERUM 0.9 mg/dL (0.6-1.3); MAGNESIUM - SERUM 1.8 mg/dL (1.8-2.4); PHOSPHOROUS 2.8 mg/dL (2.5-4.9)
[2020-12-12 06:08] LABS: POTASSIUM - SERUM 3.5 mmol/L (3.5-5.1)
[2020-12-12 08:43] VITALS: BP 141/68
[2020-12-12 14:22] VITALS: BP 114/75
[2020-12-12 17:23] VITALS: BP 139/73
--- NOTE | 2020-12-12 17:30 | NUR ---
HAS AMBULATED TO BATHROOM NUMEROUS TIMES THIS SHIFT. PERMITS SIGNED FOR COLONOSCOPY ON SAT. NO CONCERNS AT PRESENT. CALL LIGHT IN REACH
[2020-12-12 20:00] VITALS: BP 146/67
--- NOTE | 2020-12-12 20:00 | NUR ---
PT SITTING UP IN BED WITHOUT DISTRESS, AOX4. FAMILY AT BEDSIDE. DENIES NEEDS OR PAIN AT THIS TIME. CL IN REACH
[2020-12-13] VITALS: BP 164/69
[2020-12-13 04:00] VITALS: BP 127/58
[2020-12-13 05:43] LABS: BASOPHILS 1.6 % (0-2); EOSINOPHILS 3.3 % (0-7); HEMOGLOBIN 10.1 g/dL (12-16); LYMPHOCYTES 25.3 % (15-50); MCHC 33.6 g/dL (31.0-37.0); MCV 92.2 fL (80.0-100.0); MEAN PLATELET VOLUME 7.6 fL (7.4-10.4); MONOCYTES 9.4 % (2-11); NEUTROPHILS 60.4 % (40-80); PLATELET COUNT 258 10x3/uL (130-400); RBC 3.25 10x6/uL (4.00-5.40); RDW 20.8 % (11.5-14.5); WBC 6.4 10x3/uL (4.8-10.8)
[2020-12-13 05:48] LABS: ANION GAP 9.7 mmol/L (8-16); CALCIUM 7.9 mg/dL (8.5-10.1); CARBON DIOXIDE 22.6 mmol/L (21.0-32.0); CREATININE - SERUM 0.9 mg/dL (0.6-1.3); MAGNESIUM - SERUM 1.6 mg/dL (1.8-2.4); PHOSPHOROUS 3.3 mg/dL (2.5-4.9); POTASSIUM - SERUM 3.3 mmol/L (3.5-5.1)
--- NOTE | 2020-12-13 07:38 | NUR ---
AWAKE AND ALERT. ORIENTED X3. NO C/O AT THIS TIME. DENIES NEEDS. LUNGS ARE CLEAR BILATERALLY, NO COUGH NOTED. SKIN IS INTACT WITHOUT REDNESS. IV TO RIGHT FOREARM IS PATENT WITHOUT REDNESS AT INSERTION SITE.
--- NOTE | 2020-12-13 08:39 | MORECARE ---
CASE MANAGEMENT DISCHARGE SUMMARY PATIENT: ZEINA TURNER UNIT: [id number] ADM DATE: 12/08/20 AGE: 70 : 52 SEX: F ROOM/BED: D.2227 AUTHOR: YASHIRA,DOC PHYSICIAN: REFERRING PHYSICIAN: DENZEL KOEHLER DO DATE OF SERVICE: 12/13/20 Case Management Discharge Planning Summary DCP REVIEW SUMMARY ANTICIPATED D/C DATE: EXPECTED LOS : CASE STATUS: DCP Initiated INITIAL REVIEW: 12/08/2020 INITIAL REVIEWER: Sameera Harry FINAL DISCHARGE DISPOSITION: : FINAL REVIEWER: FINAL REVIEW DATE: DCP Focus Questions & Answers DCP Screen QUESTION: ANSWER High Risk Factors: : Polypharmacy (greater than 10 meds) DCP Evaluation QUESTION: ANSWER Patient's ability to cope with chronic illness : d. No chronic illness Would patient like to participate in any Care Coordination programs (if applicable): : Not applicable Mental health screen: : No mental health history DCP Re-evaluation QUESTION: ANSWER Would patient like to participate in any Care Coordination programs (if applicable): : Not applicable PATIENT: ZEINA TURNER ENCOUNTER: [id number] MEDICAL RECORD#: [id number] ADMISSION DATE: 12/08/2020 DISCHARGE DATE: ATTENDING MD: DENZEL OLMSTEAD : AGE: 70 MARITAL STATUS: S DC PLAN ID: [id number] FACILITY: [facility] PRINTED ON: 12/13/20 8:39 CT All edits/amendments must be made on the electronic document DICTATION DATE: 12/13/20838 FARM MECHANIC APPRENTICE: LOW 12/13/20838 RPT#: [id number] DC DATE: STATUS: ADM IN [facility] [address] [place] [address] END OF REPORT
--- NOTE | 2020-12-13 08:50 | MORECARE ---
CASE MANAGEMENT DISCHARGE SUMMARY PATIENT: ZEINA TURNER UNIT: [id number] ADM DATE: 12/08/20 AGE: 70 : 52 SEX: F ROOM/BED: D.2227 AUTHOR: YASHIRA,DOC PHYSICIAN: REFERRING PHYSICIAN: DEZNEL KOELHER DO DATE OF SERVICE: 12/13/20 Case Management Discharge Planning Summary COMMENTS ENTERED DATE: 12/13/20 8:37 CT COMMENT TYPE: Discharge Planning REVIEWER: Sameera Harry CM met with patient at bedside after obtaining verbal consent. CM discussed availability / needs of home health, REHAB and medical equipment. States lives alone and her daughter Susan Keita is very supportive. Dr. Koehler is her pcp and she uses [facility] for her medications. She states does not need Home health, rehab, or medical equipment. States she is to have a colonoscopy Saturday. CM to follow and assist as needed. DCP REVIEW SUMMARY ANTICIPATED D/C DATE: EXPECTED LOS : CASE STATUS: DCP Initiated INITIAL REVIEW: 12/08/2020 INITIAL REVIEWER: Sameera Harry FINAL DISCHARGE DISPOSITION: : FINAL REVIEWER: FINAL REVIEW DATE: DCP Focus Questions & Answers DCP Screen QUESTION: ANSWER High Risk Factors: : Polypharmacy (greater than 10 meds) DCP Evaluation QUESTION: ANSWER Patient's ability to cope with chronic illness : d. No chronic illness Would patient like to participate in any Care Coordination programs (if applicable): : Not applicable Mental health screen: : No mental health history DCP Re-evaluation QUESTION: ANSWER Would patient like to participate in any Care Coordination programs (if applicable): : Not applicable PATIENT: ZEINA TURNER ENCOUNTER: [id number] MEDICAL RECORD#: [id number] ADMISSION DATE: 12/08/2020 DISCHARGE DATE: ATTENDING MD: DENZEL OLMSTEAD : AGE: 70 MARITAL STATUS: S DC PLAN ID: [id number] FACILITY: [facility] PRINTED ON: 12/13/20 8:50 CT All edits/amendments must be made on the electronic document DICTATION DATE: 12/13/20849 SEED BUYER: LOW 12/13/20 0850 RPT#: [id number] DC DATE: STATUS: ADM IN [facility] [address] [place] [address] END OF REPORT
--- NOTE | 2020-12-13 09:00 | NUR ---
VERY UPSET RE CL BREAKFAST. EXPLAINED THIS IS STANDARD PRE TEST DIET. ALL QUESTIONS ANSWERED.
[2020-12-13 09:02] VITALS: BP 147/77
--- NOTE | 2020-12-13 10:00 | NUR ---
ATE ALL OF CL BREAKFAST. TOOK AM MEDS WITHOUT DIFFICULTY.
[2020-12-13 13:22] VITALS: BP 157/69
--- NOTE | 2020-12-13 14:15 | NUR ---
Nutrition follow-up: Pt now clear liquids/NPO for colonoscopy 12/14 PO intake of regular diet ~86% average of last 9 meals Labs reviewed WT: 104# +BM due to colonoscopy prep PO intake has been good. RDN will follow-up on pts progress with nutrition goals in 3-5 days.
[2020-12-13 18:04] VITALS: BP 160/69
--- NOTE | 2020-12-13 18:48 | NUR ---
REPORTS SOME RESULTS WITH GOLYTELY.
[2020-12-13 20:00] VITALS: BP 175/72
--- NOTE | 2020-12-13 20:00 | NUR ---
PT SITTING UP IN BED WITHOUT DISTRESS, AOX4. DRINKING GOLYTELY AT THIS TIME. HALFAY DONE WITH JUG. DENIES NEEDS AT THIS TIME. CL IN REACH
[2020-12-14] VITALS (9 sets, daily range): BP systolic 133–157; BP diastolic 52–77
[2020-12-14 03:09] LABS: OVA + PARASITE EXAM Final report (())
--- NOTE | 2020-12-14 17:26 | NUR ---
IV THERAPY DC'ED FROM RIGHT FOREARM WITH TIP INTACT. DISCHARGE INSTRUCTIONS GIVEN. PT VERBALIZED UNDERSTANDING. DAUGHTER HERE. WHEELED DOWNSTAIRS.
--- NOTE | 2020-12-14 17:39 | MORECARE ---
CASE MANAGEMENT DISCHARGE SUMMARY PATIENT: ZEINA TURNER UNIT: [id number] ADM DATE: 12/08/20 AGE: 70 : 52 SEX: F ROOM/BED: D.2227 AUTHOR: YASHIRA,DOC PHYSICIAN: REFERRING PHYSICIAN: DENZEL KOEHLER DO DATE OF SERVICE: 12/14/20 Case Management Discharge Planning Summary COMMENTS ENTERED DATE: 12/13/20 8:37 CT COMMENT TYPE: Discharge Planning REVIEWER: Sameera Harry CM met with patient at bedside after obtaining verbal consent. CM discussed availability / needs of home health, REHAB and medical equipment. lives alone and her daughter Susan Keita is very supportive. Dr. Koehler is her pcp and she uses [facility] for her medications. She states does not need Home health, rehab, or medical equipment. States she is to have a colonoscopy Saturday. CM to follow and assist as needed. DCP REVIEW SUMMARY ANTICIPATED D/C DATE: EXPECTED LOS : CASE STATUS: DCP Initiated INITIAL REVIEW: 12/08/2020 INITIAL REVIEWER: Sameera Harry FINAL DISCHARGE DISPOSITION: : FINAL REVIEWER: FINAL REVIEW DATE: DCP Focus Questions & Answers DCP Screen QUESTION: ANSWER High Risk Factors: : Polypharmacy (greater than 10 meds) DCP Evaluation QUESTION: ANSWER Patient's ability to cope with chronic illness : d. No chronic illness Would patient like to participate in any Care Coordination programs (if applicable): : Not applicable Mental health screen: : No mental health history DCP Re-evaluation QUESTION: ANSWER Would patient like to participate in any Care Coordination programs (if applicable): : Not applicable PATIENT: ZEINA TURNER ENCOUNTER: [id number] MEDICAL RECORD#: [id number] ADMISSION DATE: 12/08/2020 DISCHARGE DATE: 12/14/2020 ATTENDING MD: DENZEL OLMSTEAD : AGE: 70 MARITAL STATUS: S DC PLAN ID: [id number] FACILITY: [facility] PRINTED ON: 12/14/20 17:38 CT All edits/amendments must be made on the electronic document DICTATION DATE: 12/14/201737 SUPERVISOR OF OFFICIALS: LOW 12/14/201737 RPT#: [id number] DC DATE:12/14/20 STATUS: DIS IN [facility] [address] [place] [address] END OF REPORT
--- NOTE | 2020-12-18 17:25 | MORECARE ---
CASE MANAGEMENT DISCHARGE SUMMARY PATIENT: ZEINA TURNER UNIT: [id number] ADM DATE: 12/08/20 AGE: 70 : 54 SEX: F ROOM/BED: D.2227 AUTHOR: YASHIRA,DOC PHYSICIAN: REFERRING PHYSICIAN: DENZEL KOEHLER DO DATE OF SERVICE: 12/18/20 Case Management Discharge Planning Summary COMMENTS ENTERED DATE: 12/13/20 8:37 CT COMMENT TYPE: Discharge Planning REVIEWER: Sameera Harry CM met with patient at bedside after obtaining verbal consent. CM discussed availability / needs of home health, REHAB and medical equipment. lives alone and her daughter Susan Keita is very supportive. Dr. Koehler is her pcp and she uses [facility] for her medications. She states does not need Home health, rehab, or medical equipment. States she is to have a colonoscopy Saturday. CM to follow and assist as needed. DCP REVIEW SUMMARY ANTICIPATED D/C DATE: EXPECTED LOS : CASE STATUS: DCP Complete INITIAL REVIEW: 12/08/2020 INITIAL REVIEWER: Sameera Harry FINAL DISCHARGE DISPOSITION: : FINAL REVIEWER: FINAL REVIEW DATE: DCP Focus Questions & Answers DCP Screen QUESTION: ANSWER High Risk Factors: : Polypharmacy (greater than 10 meds) DCP Evaluation QUESTION: ANSWER Patient's ability to cope with chronic illness : d. No chronic illness Would patient like to participate in any Care Coordination programs (if applicable): : Not applicable Mental health screen: : No mental health history DCP Re-evaluation QUESTION: ANSWER Would patient like to participate in any Care Coordination programs (if applicable): : Not applicable PATIENT: ZEINA TURNER ENCOUNTER: [id number] MEDICAL RECORD#: [id number] ADMISSION DATE: 12/08/2020 DISCHARGE DATE: 12/14/2020 ATTENDING MD: DENZEL OLMSTEAD : AGE: 70 MARITAL STATUS: S DC PLAN ID: [id number] FACILITY: [facility] PRINTED ON: 12/18/20 17:25 CT All edits/amendments must be made on the electronic document DICTATION DATE: 12/18/201724 CENTRAL SUPPLY TECH: LOW 12/18/201724 RPT#: [id number] DC DATE:12/14/20 STATUS: DIS IN [facility] [address] [place] [address] END OF REPORT
== END 2020-12-14 17:28 | disposition home or self-care (01) | DRG 377 ==
LOC: D.MS 16:42
PROVIDERS: Family Medicine; Internal Medicine Gastroenterology; ADMIT Family Medicine; ATTEND Family Medicine
PROC: 0DB68ZX Excision of Stomach, Via Natural or Artificial Opening Endoscopic, Diagnostic (ICD-10-PCS; principal; 2020-12-10 08:00)
PROC: 0W3P8ZZ Control Bleeding in Gastrointestinal Tract, Via Natural or Artificial Opening Endoscopic (ICD-10-PCS; 2020-12-14)
DX: K29.71 Gastritis, unspecified, with bleeding (principal); E43 Unspecified severe protein-calorie malnutrition; E87.1 Hypo-osmolality and hyponatremia; D64.9 Anemia, unspecified; I10 Essential (primary) hypertension; E78.5 Hyperlipidemia, unspecified; K73.9 Chronic hepatitis, unspecified; J44.9 Chronic obstructive pulmonary disease, unspecified; E03.9 Hypothyroidism, unspecified; Z79.01 Long term (current) use of anticoagulants; Z68.20 Body mass index [BMI] 20.0-20.9, adult; M19.90 Unspecified osteoarthritis, unspecified site; Q27.33 Arteriovenous malformation of digestive system vessel